=== PATIENT | male | born 1955 | race Caucasian/White ===

== ENCOUNTER → 2019-09-04 | Outpatient (REF) | payer BC | LOC: M LAB LCGH 13:29 | PROVIDERS: ATTEND Physician Assistant | DX: L82.1 Other seborrheic keratosis (principal) ==

== ENCOUNTER → 2022-07-06 | Outpatient (CLI) | payer BC, MEDICARE ==
[~2022-07-06] MED LIST: OMEP-173 PO; ROSU10TA6 PO
== END ==
LOC: M ONCR 13:49
PROVIDERS: ATTEND General Practice
DX: C61 Malignant neoplasm of prostate (principal); C34.92 Malignant neoplasm of unspecified part of left bronchus or lung; K21.9 Gastro-esophageal reflux disease without esophagitis; R97.20 Elevated prostate specific antigen [PSA]; Z79.899 Other long term (current) drug therapy; Z87.891 Personal history of nicotine dependence; Z90.2 Acquired absence of lung [part of]

== ENCOUNTER → 2022-09-07 | Outpatient (CLI) | payer BC ==
[~2022-09-07] VITALS: Ht 165.1 cm; Wt 72.5 kg
[~2022-09-07] MED LIST changes: +CIPR750T2 PO; +LIDOCAINE 2% MDV 20ML VIAL XX ONE; +LIDOCAINE VISCOUS 2% SOLN 15ML UDC XX ONE; +LORA1TAB4 PO
[2022-09-07 14:04] VITALS: BP 132/93
[2022-09-07 14:47] VITALS: BP 145/98
== END ==
LOC: M ONCR 13:39
PROVIDERS: ATTEND General Practice
DX: C61 Malignant neoplasm of prostate (principal)
CPT/HCPCS: 55874; 55876; A4648; C1889

== ENCOUNTER 2022-10-08 13:51 | Outpatient (RCR) | payer BC ==
[~2022-10-08 13:51] MED LIST changes: +FLOM0.4C39 PO; -LIDOCAINE 2% MDV 20ML VIAL XX ONE; -LIDOCAINE VISCOUS 2% SOLN 15ML UDC XX ONE
[2022-10-15] MEDS ORDERED: DEXA4TA PO (09:49)
== END 2022-10-19 ==
LOC: M ONCR 13:51
PROVIDERS: ATTEND General Practice
DX: C61 Malignant neoplasm of prostate (principal)

== ENCOUNTER → 2022-10-19 | Outpatient (REF) | payer MEDICARE, BC ==
[~2022-10-19] MED LIST changes: +DEXA4TA PO
== END ==
LOC: M SFHCDERM 14:16
PROVIDERS: ATTEND Nurse Practitioner Family
DX: L82.0 Inflamed seborrheic keratosis (principal)

== ENCOUNTER → 2022-11-04 | Outpatient (REF) | payer MEDICARE, BC | LOC: M LAB REF 16:35 | PROVIDERS: ATTEND Surgery | DX: D17.24 Benign lipomatous neoplasm of skin and subcutaneous tissue of left leg (principal) ==

== ENCOUNTER → 2023-01-06 | Outpatient (CLI) | payer BC | LOC: M ONCR 14:15 | PROVIDERS: ATTEND General Practice | DX: C61 Malignant neoplasm of prostate (principal); Z79.899 Other long term (current) drug therapy; Z85.118 Personal history of other malignant neoplasm of bronchus and lung; Z87.891 Personal history of nicotine dependence; Z90.2 Acquired absence of lung [part of]; Z92.3 Personal history of irradiation ==

== ENCOUNTER → 2023-05-27 | Outpatient (CLI) | payer BC ==
[~2023-05-27] MED LIST changes: +LORA1TAB23 PO; -LORA1TAB4 PO
== END ==
LOC: M ONCR 15:11
PROVIDERS: ATTEND General Practice
DX: R30.0 Dysuria (principal); C61 Malignant neoplasm of prostate
CPT/HCPCS: 36415; 81001; G0463

== ENCOUNTER → 2023-06-21 | Outpatient (REF) | payer BC, MEDICARE ==
[2023-06-21 13:38] LABS: AMORPHOUS SEDIMENT SMALL (NEGATIVE); APPEARANCE, URINE HAZY (CLEAR); BACTERIA, URINE AUTO NEGATIVE (NEGATIVE); BILIRUBIN, URINE AUTO NEGATIVE (NEGATIVE); BLOOD, URINE BLOOD NEGATIVE (NEGATIVE); COLOR, URINE YELLOW (YELLOW); GLUCOSE, URINE (UA) AUTO NEGATIVE (NEGATIVE); KETONE, URINE AUTO NEGATIVE (NEGATIVE); LEUKOCYTE ESTERASE, URINE AUTO NEGATIVE (NEGATIVE); MUCUS, URINE SMALL (NEGATIVE); NITRITE, URINE AUTO NEGATIVE (NEGATIVE); PROTEIN, URINE AUTO NEGATIVE (NEGATIVE); RBC, URINE AUTO 0 /HPF (0-3); SPECIFIC GRAVITY URINE AUTO 1.017 (1.002-1.035); SQUAMOUS EPITHELIAL CELL UR AU 0 /HPF (0-6); UROBILINOGEN, URINE AUTO 0.2 mg/dL (0.0-2.0); WBC, URINE AUTO 1 /HPF (0-3)
== END ==
LOC: M SMT 12:44
PROVIDERS: ATTEND Physician Assistant
DX: R30.0 Dysuria (principal)

== ENCOUNTER → 2023-07-19 | Outpatient (CLI) | payer MEDICARE, BC | LOC: M ONCR 13:00 | PROVIDERS: ATTEND Radiology Radiation Oncology | DX: C61 Malignant neoplasm of prostate (principal); Z71.2 Person consulting for explanation of examination or test findings; Z79.899 Other long term (current) drug therapy; Z85.118 Personal history of other malignant neoplasm of bronchus and lung; Z87.891 Personal history of nicotine dependence; Z90.2 Acquired absence of lung [part of]; Z92.3 Personal history of irradiation; Z88.5 Allergy status to narcotic agent ==

== ENCOUNTER → 2024-01-17 | Outpatient (REF) | payer MEDICARE, OTHER ==
[~2024-01-17] MED LIST changes: -ROSU10TA6 PO; +ROSU10TA61 PO
== END ==
LOC: M SFHCDERM 17:38
PROVIDERS: ATTEND Nurse Practitioner Family
DX: L82.0 Inflamed seborrheic keratosis (principal); L82.1 Other seborrheic keratosis

== ENCOUNTER → 2024-01-18 | Outpatient (CLI) | payer MEDICARE ==
[~2024-01-18] MED LIST changes: +ROSU10TA6 PO; -ROSU10TA61 PO
== END ==
LOC: M ONCR 13:20
PROVIDERS: ATTEND General Practice
DX: C61 Malignant neoplasm of prostate (principal); Z85.118 Personal history of other malignant neoplasm of bronchus and lung; R39.12 Poor urinary stream; Z71.2 Person consulting for explanation of examination or test findings; Z79.899 Other long term (current) drug therapy; Z87.891 Personal history of nicotine dependence; Z88.5 Allergy status to narcotic agent; Z92.3 Personal history of irradiation

== ENCOUNTER → 2024-07-24 | Outpatient (CLI) | payer MEDICARE ==
[~2024-07-24] MED LIST changes: -ROSU10TA6 PO; +ROSU10TA61 PO
== END ==
LOC: M ONCR 10:01
PROVIDERS: ATTEND General Practice
DX: C61 Malignant neoplasm of prostate (principal); Z92.3 Personal history of irradiation; Z87.891 Personal history of nicotine dependence; Z90.2 Acquired absence of lung [part of]; Z85.118 Personal history of other malignant neoplasm of bronchus and lung; Z88.5 Allergy status to narcotic agent; Z79.899 Other long term (current) drug therapy

== ENCOUNTER → 2025-07-24 | Outpatient (CLI) | payer MEDICARE, BC ==
[~2025-07-24] MED LIST changes: -FLOM0.4C39 PO; -ROSU10TA61 PO; +ROSU10TA90 PO; +TAMS-18 PO
== END ==
LOC: M ONCR 09:54
PROVIDERS: ATTEND General Practice
DX: C61 Malignant neoplasm of prostate (principal); Z85.118 Personal history of other malignant neoplasm of bronchus and lung; Z90.2 Acquired absence of lung [part of]; Z92.3 Personal history of irradiation; N52.35 Erectile dysfunction following radiation therapy; Z87.891 Personal history of nicotine dependence; Z88.5 Allergy status to narcotic agent; Z79.899 Other long term (current) drug therapy